=== PATIENT | male | born 1960 | race Caucasian/White ===

== ENCOUNTER 2016-11-22 13:20 | Emergency (ER) | payer SELFPAY ==
[~2016-11-22] VITALS: Ht 157.5 cm; Wt 67.7 kg
[2016-11-22 13:25] VITALS: Ht 157.5 cm; Wt 67.7 kg
== END 2016-11-22 14:57 | disposition left against medical advice (07) ==
LOC: E/R 13:20
DX: Z53.21 Procedure and treatment not carried out due to patient leaving prior to being seen by health care provider (principal)